=== PATIENT | female | born 1970 | race Caucasian/White ===

== ENCOUNTER → 2016-10-14 | Outpatient (CLI) | payer BC ==
--- NOTE | 2016-10-15 13:59 | MAMMOGRAPHY REPORT ---
BILATERAL DIGITAL SCREENING MAMMOGRAM TOMOSYNTHESIS WITH CAD: 10/14/2016 CLINICAL HISTORY: Routine screening. Patient has no complaints. TECHNIQUE: Breast tomosynthesis in addition to standard 2D mammography was performed. Current study was also evaluated with a Computer Aided Detection (CAD) system. COMPARISON: Comparison is made to exam dated: 10/10/2015 mammogram - [facility]. BREAST COMPOSITION: There are scattered areas of fibroglandular density in both breasts. FINDINGS: No suspicious masses, calcifications, or areas of architectural distortion are noted in ei ther breast. There has been no significant interval change compared to prior exams. Scattered bilater al benign-appearing calcifications are not significantly changed. IMPRESSION: ACR BI-RADS CATEGORY 2: BENIGN There is no mammographic evidence of malignancy. A 1 year screening mammogram is recommended. The pa tient will receive written notification of the results. Approximately 10% of breast cancers are not detected with mammography. A negative mammographic report should not delay biopsy if a clinically suggestive mass is present. Pinky Melchor M.D. ah/:10/14/2016 16:39:14 Acquisition Cost Estimator: Mariposa Shell RT(R)(M)(BD), [facility] letter sent: Normal 1/2 BI-RADS Code: ACR BI-RADS Category 2: Benign
== END | disposition home or self-care (01) ==
LOC: C.MAMM 16:21
PROVIDERS: ATTEND Family Medicine
DX: Z12.31 Encounter for screening mammogram for malignant neoplasm of breast (principal)

== ENCOUNTER 2017-06-17 06:52 | Inpatient (IN) | payer OTHER ==
--- NOTE | 2017-06-14 10:58 | HISTORY & PHYSICAL EXAMINATION ---
DATE OF ADMISSION: 06/17/2017 CHIEF COMPLAINT: Pelvic pain, large ovarian tumor. HISTORY OF PRESENT ILLNESS: The patient is a 47-year-old 2, para 2. She has had 2 previous sections. She has also had a tubal ligation with one of her C-sections for control. Periods are described as 28-30 days. They last for 7+ days. They can be extremely heavy 4-5 days, a cycle soaking over a pad an hour along with a large amount of clotting. She also has severe cramps. She recently had some pelvic discomfort and was seen in the Emergency Room. An ultrasound was performed. She had a large right-sided multicystic ovarian tumor. Some dimensions were over 15 cm. The tumor is palpable abdominally and she is presently being scheduled for a total abdominal hysterectomy, bilateral salpingo-oophorectomy and potential periaortic lymph node sampling. It should also be noted that her sister who is 43 recently had a malignant sarcoma of the pelvis removed just about 3 weeks ago. ALLERGIES: No known drug allergies. PAST SURGICAL HISTORY: She had 2 C-sections and a tubal. PAST MEDICAL HISTORY: No history of rheumatic fever, heart disease, heart murmur, diabetes, tuberculosis. She has 2 children in good health. SOCIAL HISTORY: No smoking. No excessive alcohol intake. Works for [employer]. FAMILY HISTORY: Mom at age 71, complications of an aneurysm. She had also had Legionnaires' disease. Father, 71, has diabetes and COPD. She has 1 sister, age 43, recent removal of a pelvic sarcoma. REVIEW OF SYSTEMS: HEAD: No symptoms of frequent or severe headaches. EYES: No symptoms of blurred vision or double vision. EARS: No symptoms of frequent ear infections, difficulty hearing. PHYSICAL EXAMINATION: GENERAL: Well developed, well-nourished 47-year-old white female, alert, oriented x3 and cooperative in no acute distress, appeared her stated age. EYES: Conjunctivae are pink. Sclerae white, no evidence of jaundice. EARS: Had normal light reflex bilaterally. NOSE: Had normal mucosa. Septum is midline. There were no polyps. THROAT: No erythema or evidence of infection. Teeth are in good state of repair. HEAD: Normocephalic, normal distribution of hair. NECK: Supple. Trachea midline. Thyroid is not enlarged. There is no adenopathy appreciated. Both carotids are of good intensity. CHEST: Clear to auscultation and percussion. No wheezes, rales or rhonchi appreciated. HEART: Regular rhythm. S1, S2 are normal. BREASTS: Normal. ABDOMEN: Revealed a well-healed Pfannenstiel incision. There was a palpable tumor up to the level of the umbilicus. PELVIC: Normal appearing cervix. Uterus was normal size. MUSCULOSKELETAL: Revealed no calf tenderness. IMPRESSIONS OF THIS CASE: Status post 2 C-sections, status post tubal ligation and a large symptomatic ovarian tumor, hypermenorrhea, severe dysmenorrhea.
[2017-06-14 12:20] VITALS: BMI 27.0
--- NOTE | 2017-06-14 12:58 | PAT Medication Instructions ---
Service Date Jun 14, 2017. Current Home Medication List Ibuprofen Tab (Advil), 400 MG PO PRN Medication Instructions For Your Scheduled Surgery - Check with your surgeon for: Ibuprofen Tab (Advil), 400 MG PO PRN If you have any questions please call us at [phone] or [phone] or [phone]
[2017-06-14 13:09] LABS: BASO % 0.2 %; BASO ABS # 0.01 K/uL (0-0.2); EOS % 2.5 %; EOS ABS # 0.13 K/uL (0-0.5); HEMATOCRIT 35.5 % (37-47); HEMOGLOBIN 11.3 g/dL (12.0-16.0); IG# 0.02 K/uL (0.00-0.02); LYMPH % 19.1 %; MEAN CORPUSCULAR HEMOGLOBIN 25.5 pg (25-34); MEAN CORPUSCULAR HGB CONC 31.8 g/dl (32-36); MEAN PLATELET VOLUME 9.1 fL (7.4-10.4); MONO % 8.2 %; MONO ABS # 0.43 K/uL (0.11-0.59); NEUT % 69.6 %; NEUT ABS # 3.65 K/uL (1.4-6.5); PLATELET COUNT 238 K/uL (130-400); RED CELL DISTRIBUTION WIDTH CV 13.8 % (11.5-14.5); RED CELL DISTRIBUTION WIDTH SD 39.8 fL (36.4-46.3); WHITE BLOOD COUNT 5.24 K/uL (4.8-10.8)
[2017-06-14 13:19] LABS: PTT PATIENT 24.1 SECONDS (21.0-31.0)
[2017-06-14 13:34] LABS: CALCIUM 8.7 mg/dl (8.5-10.1); CREATININE 0.96 mg/dl (0.60-1.20); POTASSIUM 3.9 mmol/L (3.5-5.1)
[~2017-06-17] VITALS: Ht 165.1 cm; Wt 75.4 kg
[2017-06-17] VITALS (10 sets, daily range): BP systolic 151–173; BP diastolic 84–112; PULSE 61–97; TEMP 36.4–37.1; O2SAT 94–99; Ht 165.1 cm; Wt 75.4 kg
[~2017-06-17 06:52] MED LIST: CEFOXITIN IV 2,000 MG in DEXTROSE 5% 50ML 50 ML IV SCH; IBUP-103 PO; LACTATED RINGER'S 1000ML 1,000 ML IV SCH
[2017-06-17] MEDS ORDERED: NEOSTIGMINE METHYLSULFATE 5 MG/5 ML SYR ONE (07:39)
[2017-06-17] MEDS ORDERED: ONDANSETRON INJ 2 MG/ML 2 ML VIAL ONE ×2 (07:39→09:20)
[2017-06-17] MEDS ORDERED: GLYCOPYRROLATE INJ 0.2 MG/ML VIAL ONE ×2 (07:39→09:20)
[2017-06-17] MEDS ORDERED: MIDAZOLAM HCL 1 MG/ML 2ML VIAL ONE (07:39)
[2017-06-17] MEDS ORDERED: FENTANYL CITRATE INJ 50 MCG/1 ML 2 ML VIAL ONE ×2 (07:39→10:58)
[2017-06-17] MEDS ORDERED: PROPOFOL IV EMULSION 10 MG/ML 20 ML VIAL IV ONE (07:39)
[2017-06-17] MEDS ORDERED: LIDOCAINE HCL 2% 2 ML VIAL (20MG/ML) ONE (07:39)
[2017-06-17] MEDS ORDERED: DEXAMETHASONE SOD INJ 4 MG/ML VIAL ONE (07:39)
[2017-06-17] MEDS ORDERED: LARYING-O-JET KIT (LTA) ONE (07:40)
[2017-06-17] MEDS ORDERED: SODIUM CHLORIDE 0.9% INJ 10 ML VIAL ONE (07:40)
[2017-06-17] MEDS ORDERED: HYDROmorphone INJ 2 MG/ML SYR/VIAL ONE (07:40)
[2017-06-17] MEDS ORDERED: EpHEDrine SULFATE INJ 50 MG/ML AMP IV PRN (08:00)
[2017-06-17] MEDS ORDERED: ATROPINE SULFATE 0.1 MG/ML 5ML SYR IV PRN (08:00)
[2017-06-17] MEDS ORDERED: PHENYLEPHRINE 100MCG/ML 5ML SYR IV PRN (08:00)
[2017-06-17] MEDS ORDERED: ONDANSETRON INJ 2 MG/ML 2 ML VIAL IV PRN ×2 (08:00→11:15)
--- NOTE | 2017-06-17 08:08 | History & Physical Bridge Note ---
H&P Re-Evaluation Bridge Note: I have examined the patient, reviewed the History & Physical and in the interval since the performance of the History & Physical by Dr Sim I have noted the following changes of clinical significance: No changes noted explained to pt that I will be helping dr Sim and if node dissection needed( hopefully not) i will perform it ( a seperate consent signed at request of OR charge nurse)
--- NOTE | 2017-06-17 08:37 | History & Physical Bridge Note ---
H&P Re-Evaluation Bridge Note: I have examined the patient, reviewed the History & Physical and in the interval since the performance of the History & Physical I have noted the following changes of clinical significance: No changes noted
[2017-06-17] MEDS ORDERED: HEPARIN SOD (PORCINE) 1000 UNIT/ML 10 ML VIAL ONE (08:39)
[2017-06-17] MEDS ORDERED: ESMOLOL HCL 10 MG/ML 10 ML VIAL ONE (09:12)
[2017-06-17] MEDS ORDERED: PHENYLEPHRINE 100MCG/ML 5ML SYR ONE (09:20)
[2017-06-17] MEDS ORDERED: ROCURONIUM BROMIDE 10 MG/ML 5 ML VIAL IV ONE (10:43)
[2017-06-17] MEDS ORDERED: KETOROLAC TROMETHAMINE 30 MG/ML VIAL ONE (10:46)
--- NOTE | 2017-06-17 10:48 | [facility] Post Operative Brief Note ---
Immediate Operative Summary Operative Date Jun 17, 2017. Pre-Operative Diagnosis Pelvic Pain, Pelvic Mass Post-Operative Diagnosis Pelvic Pain, Left Ovarian Tumor Procedure(s) Performed Total Abdominal Hysterectomy, Bilateral Salping-Oophrectomy Surgeon Dr. Sim, Dr. Cabrera Cabin Equipment Supervisor Surgeon(s) Dilcia Milligan PA-C Estimated Blood Loss 160 cc Findings Consistent with Post-Op Diagnosis Fluids (cc crystalloids) 1200 ml Specimens Frozen: #1 Left Ovarian Tumor Cytology #1 Peritoneal Fluid Drains doe drain with safety pin Anesthesia Type General Complication(s) none Disposition Accompanied Pt To Recover: no Disposition: Recovery Room / PACU
[2017-06-17] MEDS ORDERED: MAGNESIUM HYDROXIDE SUSP 30 ML UDC PO PRN (11:15)
[2017-06-17] MEDS ORDERED: BISACODYL 10 MG SUPP PR PRN (11:15)
[2017-06-17] MEDS ORDERED: SENNA 8.6 MG TAB PO PRN (11:15)
[2017-06-17] MEDS ORDERED: MEPERIDINE HCL 50 MG/ML CARP IV PRN (11:15)
[2017-06-17] MEDS: HYDROmorphone INJ 2 MG/ML SYR/VIAL IV PRN ×2 (11:18→11:24)
--- NOTE | 2017-06-17 12:32 | OPERATIVE REPORT ---
DATE OF OPERATION: 06/17/2017 PROCEDURE: This is an operative notation of a total abdominal hysterectomy, bilateral salpingo-oophorectomy. INDICATIONS FOR SURGERY: Large left-sided ovarian tumor. PREOPERATIVE DIAGNOSIS: Left-sided ovarian tumor. POSTOPERATIVE DIAGNOSIS: Large benign serous adenoma. SURGEON: Shana Sim MD SIGN BUILDER SUPERVISOR: Dr. Goetz Estimated Blood Loss: 160 mL ANESTHESIA: General. OPERATIVE FINDINGS AND PROCEDURE: The patient was brought to the OR table, correctly identified by armband and conversation. General anesthesia was administered. The perineum and vagina were painted with Betadine paint, draped in usual sterile fashion. A Burton catheter was inserted into the bladder connected to gravity drainage. Compression stockings were applied. The lower abdomen and umbilical area were painted with an alcohol-based sterilizing solution, draped in usual sterile fashion. The pelvic tumor was palpable abdominally and came to the level of the umbilicus. A midline incision was made and carried down to the anterior fascia by sharp dissection. Hemostasis was secured by electrocauterization. The fascia was incised vertically. Recti muscles were . The peritoneum was carefully raised and entered. A large ovarian tumor was noted at this time and we had to extend the incision partly around the umbilicus on the right side in order to get it through the abdominal incision without rupture. After extending the incision, we were able to deliver it through the incision intact, doubly clamped the base, cut it, and then immediately put it in a basin. We then ligated the base of the tumor, packed the bowels out, using an O'Scar-O'Sykes self-retraining retractor grasped the uterus with a double tooth tenaculum. The uterus at this time was enlarged to about an 8-week size. The right ovary appeared normal. We proceeded to remove the right ovary by going retroperitoneally, then isolating the infundibulopelvic ligament that supplied the blood from the lateral pelvic wall, doubly ligated it distally, singly ligated it proximally, cut it free. We then re-ligated the infundibulopelvic ligament on the left side by going retroperitoneally, then ligated the round ligaments on either side proximally and distally, cut the round ligaments, made an incision above the vesicouterine fold, then advanced the bladder out of the operative field, skeletonized the uterine vessels, clamped it with a curved Cesar, then doubly ligated it with a chromic gut suture. We then continued to dissect the bladder off the cervix to make sure it was well-advanced and then clamped the cardinal ligaments serially by sliding off the cervix with a curved Cesar, cutting with a stump and then ligating with a chromic gut suture. This was done in 2 steps because of the length of the ligament. Then the specimen was removed by using an electrocautery knife and shelling out the cervix by starting up high from the cuff and shelling out the cervix, entering the vagina, and carrying the incision around the cervix, thus excising the remaining surgical specimen, which were uterus, cervix, right tube, and ovary. The angles of the vaginal cuff were suture ligated to the stumps of the cardinal ligaments on either side, then the vaginal mucosa was approximated [id number] with interrupted [id number] sutures of chromic catgut. An additional suture was placed on the left side and then a small portion of the vaginal cuff was whipstitched open with a continuous chromic gut suture. The cardinal ligaments were then approximated by going from the patient's left side up by the cardinal ligaments getting the distal uterosacral ligament on the right side, then going to the left distal uterosacral ligament and coming back to the right cardinal ligament and then tying a [id number] suture of Vicryl. This gave additional support to the posterior cuff. We then took the round ligaments, brought them down into the vaginal cuff, sutured them into the vaginal cuff, then reperitonealized everything with a continuous chromic gut suture, placed a Rhys drain with a safety pin into the vaginal cuff to the distal end into the cul-de-sac. We washed everything clean and then reapproximated the abdominal wall. I did a running chromic gut suture to approximate the peritoneal edges, did a running heavy PDS to approximate the fascia from the top of the defect to the middle and then from the bottom of the defect to the middle. Then I did a running subcuticular suture and approximated the skin edges with staple clips. The patient tolerated the procedure well and left the OR in good condition. I attest to the content of the Intraoperative Record and any orders documented therein. Any exception s are noted below.
--- NOTE | 2017-06-17 14:04 | Anesthesiology Progress Note ---
Anesthesia Post Op Note Date & Time Jun 17, 2017 at 14:04 Vital Signs Pain Intensity: 6.0 Vital Signs Past 12 Hours Date Time Temp Pulse Resp B/P (MAP) Pulse Ox O2 Delivery O2 Flow Rate FiO2 06/17/17 13:15 36.9 72 18 153/98 (116) 99 Nasal Cannula 2.0 06/17/17 12:45 36.6 74 20 154/90 (111) 98 Nasal Cannula 2.0 06/17/17 12:15 99 Nasal Cannula 2.0 06/17/17 12:15 36.9 61 20 155/88 (110) 99 Nasal Cannula 2.0 06/17/17 12:15 99 Nasal Cannula 2.0 06/17/17 11:50 16 141/88 99 Nasal Cannula 2 06/17/17 11:40 37.0 69 16 122/82 99 Nasal Cannula 2 06/17/17 11:30 70 12 135/81 99 Nasal Cannula 2 06/17/17 11:20 69 15 133/68 100 Oxymask 10 06/17/17 11:10 66 11 141/88 99 Oxymask 10 06/17/17 11:00 37.1 66 20 148/102 96 Oxymask 10 06/17/17 07:48 37.1 73 20 151/92 97 Room Air Notes Mental Status: alert / awake / arousable, participated in evaluation Pt Amnestic to Procedure: Yes Nausea / Vomiting: adequately controlled Pain: adequately controlled Airway Patency, RR, SpO2: stable & adequate BP & HR: stable & adequate Hydration State: stable & adequate Anesthetic Complications: no major complications apparent
[2017-06-17] MEDS ORDERED: NURSING VERBAL MED ORDER ONE (14:30)
[2017-06-17] MEDS ORDERED: MEPERIDINE HCL 50 MG/ML CARP IV ONE (14:45)
[2017-06-17] MEDS: D5W AND LACTATED RINGERS 1,000 ML IV SCH ×2 (16:10→23:57)
[2017-06-17] MEDS: KETOROLAC TROMETHAMINE 30 MG/ML VIAL IV. PRN ×2 (16:10→21:46)
[2017-06-17] MEDS: MEPERIDINE HCL 50 MG/ML CARP IV PRN ×2 (18:15→22:40)
[2017-06-18] VITALS: BP 142/83; PULSE 69; TEMP 36.4; O2SAT 97
[2017-06-18 03:00] VITALS: BP 153/79; PULSE 73; TEMP 36.8; O2SAT 96
[2017-06-18] MEDS: KETOROLAC TROMETHAMINE 30 MG/ML VIAL IV. PRN ×2 (03:22→08:55)
[2017-06-18 06:31] LABS: EOS % 0.2 %; EOS ABS # 0.02 K/uL (0-0.5); HEMATOCRIT 33.5 % (37-47); HEMOGLOBIN 10.9 g/dL (12.0-16.0); IG# 0.02 K/uL (0.00-0.02); LYMPH % 11.1 %; LYMPH ABS # 0.98 K/uL (1.2-3.4); MEAN CELL VOLUME 79.6 fL (80-100); MEAN CORPUSCULAR HEMOGLOBIN 25.9 pg (25-34); MEAN CORPUSCULAR HGB CONC 32.5 g/dl (32-36); MEAN PLATELET VOLUME 8.8 fL (7.4-10.4); MONO % 5.4 %; MONO ABS # 0.48 K/uL (0.11-0.59); NEUT % 83.1 %; NEUT ABS # 7.36 K/uL (1.4-6.5); PLATELET COUNT 236 K/uL (130-400); RED CELL DISTRIBUTION WIDTH SD 39.2 fL (36.4-46.3); WHITE BLOOD COUNT 8.86 K/uL (4.8-10.8)
[2017-06-18] MEDS: MEPERIDINE HCL 50 MG/ML CARP IV PRN (06:31)
[2017-06-18 07:34] VITALS: BP 131/81; PULSE 80; TEMP 37; O2SAT 95
--- NOTE | 2017-06-18 11:17 | Progress Note ---
Subjective Jun 18, 2017. Subjective conversation w/ patient Ambulation: ambulating normally, limited ambulation Voiding: no voiding problems Passing Gas: No Diet Tolerance: Clear Liquids Review of Systems Constitutional: + fever Objective Vital Signs Date Time Temp Pulse Resp B/P (MAP) Pulse Ox O2 Delivery O2 Flow Rate FiO2 06/18/17 07:50 Room Air 06/18/17 07:34 37.0 80 16 131/81 (98) 95 Room Air 06/18/17 03:00 36.8 73 18 153/79 (103) 96 Room Air 06/18/17 00:00 36.4 69 18 142/83 (102) 97 Room Air 06/18/17 00:00 97 Room Air 06/17/17 22:00 94 Room Air 06/17/17 20:00 36.7 76 18 157/84 (108) 99 Nasal Cannula 2.0 76 06/17/17 16:10 173/91 (118) 06/17/17 15:30 36.9 97 16 171/92 (118) Nasal Cannula 2.0 81 167/112 (130) 06/17/17 15:30 98 Nasal Cannula 2.0 06/17/17 15:05 36.4 90 20 166/99 (121) 96 Nasal Cannula 2.0 06/17/17 14:15 36.7 82 18 160/90 (113) 98 Nasal Cannula 2.0 06/17/17 13:15 36.9 72 18 153/98 (116) 99 Nasal Cannula 2.0 06/17/17 12:45 36.6 74 20 154/90 (111) 98 Nasal Cannula 2.0 06/17/17 12:15 99 Nasal Cannula 2.0 06/17/17 12:15 36.9 61 20 155/88 (110) 99 Nasal Cannula 2.0 06/17/17 12:15 99 Nasal Cannula 2.0 06/17/17 11:50 16 141/88 99 Nasal Cannula 2 06/17/17 11:40 37.0 69 16 122/82 99 Nasal Cannula 2 06/17/17 11:30 70 12 135/81 99 Nasal Cannula 2 06/17/17 11:20 69 15 133/68 100 Oxymask 10 Physical Exam General Appearance: WELL-APPEARING Respiratory/Chest: lungs clear Abdomen: + abnormal bowel sounds Incision Description: Clean, Dry & Intact Extremities: no pedal edema, no calf tenderness Laboratory Results Last 24 Hours Test 06/18/17 06:20 White Blood Count 8.86 K/uL Red Blood Count 4.21 M/uL Hemoglobin 10.9 g/dL Hematocrit 33.5 % Mean Corpuscular Volume 79.6 fL Mean Corpuscular Hemoglobin 25.9 pg Mean Corpuscular Hemoglobin Concent 32.5 g/dl Platelet Count 236 K/uL Mean Platelet Volume 8.8 fL Neutrophils (%) (Auto) 83.1 % Lymphocytes (%) (Auto) 11.1 % Monocytes (%) (Auto) 5.4 % Eosinophils (%) (Auto) 0.2 % Basophils (%) (Auto) 0.0 % Neutrophils # (Auto) 7.36 K/uL Lymphocytes # (Auto) 0.98 K/uL Monocytes # (Auto) 0.48 K/uL Eosinophils # (Auto) 0.02 K/uL Basophils # (Auto) 0.00 K/uL RDW Standard Deviation 39.2 fL RDW Coefficient of Variation 14.0 % Immature Granulocyte % (Auto) 0.2 % Immature Granulocyte # (Auto) 0.02 K/uL Assessment and Plan Continue Routine Care: hypoactive bowel sounds
[2017-06-18] MEDS ORDERED: NURSING VERBAL MED ORDER ONE (11:30)
[2017-06-18 11:59] VITALS: BP 149/89; PULSE 84; TEMP 36.9; O2SAT 97
[2017-06-18] MEDS: SIMETHICONE 80 MG CHEW PO SCH ×3 (12:06→20:41)
[2017-06-18] MEDS: OXYCODONE/ACETAMINOPHEN 5-325 TAB PO PRN ×4 (12:07→20:45)
[2017-06-18 15:45] VITALS: BP 123/84; PULSE 83; TEMP 37.2; O2SAT 96
[2017-06-18] MEDS: IBUPROFEN 600 MG TAB PO PRN ×2 (15:54→20:12)
[2017-06-19 00:01] VITALS: BP 117/75; PULSE 76; TEMP 36.6; O2SAT 96
[2017-06-19] MEDS: OXYCODONE/ACETAMINOPHEN 5-325 TAB PO PRN ×5 (03:46→21:04)
[2017-06-19] MEDS: IBUPROFEN 600 MG TAB PO PRN ×4 (03:47→21:04)
[2017-06-19 07:07] LABS: BASO % 0.2 %; BASO ABS # 0.01 K/uL (0-0.2); EOS ABS # 0.11 K/uL (0-0.5); HEMATOCRIT 30.5 % (37-47); HEMOGLOBIN 9.5 g/dL (12.0-16.0); IG# 0.02 K/uL (0.00-0.02); LYMPH % 10.9 %; LYMPH ABS # 0.61 K/uL (1.2-3.4); MEAN CELL VOLUME 81.6 fL (80-100); MEAN CORPUSCULAR HEMOGLOBIN 25.4 pg (25-34); MEAN CORPUSCULAR HGB CONC 31.1 g/dl (32-36); MEAN PLATELET VOLUME 9.1 fL (7.4-10.4); MONO % 7.7 %; MONO ABS # 0.43 K/uL (0.11-0.59); NEUT % 78.8 %; PLATELET COUNT 221 K/uL (130-400); RED CELL DISTRIBUTION WIDTH CV 14.3 % (11.5-14.5); RED CELL DISTRIBUTION WIDTH SD 42.8 fL (36.4-46.3); WHITE BLOOD COUNT 5.58 K/uL (4.8-10.8)
[2017-06-19 07:45] VITALS: BP 133/87; PULSE 78; TEMP 36.5; O2SAT 96
[2017-06-19] MEDS: SIMETHICONE 80 MG CHEW PO SCH ×4 (08:54→21:04)
--- NOTE | 2017-06-19 09:57 | Progress Note ---
Subjective Jun 19, 2017. Subjective conversation w/ patient Ambulation: ambulating normally Voiding: no voiding problems Passing Gas: Yes Diet Tolerance: Regular Diet Lochia: Small Review of Systems Constitutional: + fever Objective Vital Signs Date Time Temp Pulse Resp B/P (MAP) Pulse Ox O2 Delivery O2 Flow Rate FiO2 06/19/17 07:45 Room Air 06/19/17 07:45 36.5 78 16 133/87 (102) 96 Room Air 06/19/17 00:01 36.6 76 16 117/75 (89) 96 Room Air 06/19/17 00:01 96 Room Air 06/18/17 15:45 96 Room Air 06/18/17 15:45 37.2 83 16 123/84 (97) 96 Room Air 06/18/17 11:59 36.9 84 18 149/89 (109) 97 Room Air Physical Exam General Appearance: WELL-APPEARING Respiratory/Chest: lungs clear Abdomen: normal bowel sounds, non tender Extremities: no pedal edema, no calf tenderness Laboratory Results Last 24 Hours Test 06/19/17 06:27 White Blood Count 5.58 K/uL Red Blood Count 3.74 M/uL Hemoglobin 9.5 g/dL Hematocrit 30.5 % Mean Corpuscular Volume 81.6 fL Mean Corpuscular Hemoglobin 25.4 pg Mean Corpuscular Hemoglobin Concent 31.1 g/dl Platelet Count 221 K/uL Mean Platelet Volume 9.1 fL Neutrophils (%) (Auto) 78.8 % Lymphocytes (%) (Auto) 10.9 % Monocytes (%) (Auto) 7.7 % Eosinophils (%) (Auto) 2.0 % Basophils (%) (Auto) 0.2 % Neutrophils # (Auto) 4.40 K/uL Lymphocytes # (Auto) 0.61 K/uL Monocytes # (Auto) 0.43 K/uL Eosinophils # (Auto) 0.11 K/uL Basophils # (Auto) 0.01 K/uL RDW Standard Deviation 42.8 fL RDW Coefficient of Variation 14.3 % Immature Granulocyte % (Auto) 0.4 % Immature Granulocyte # (Auto) 0.02 K/uL Assessment and Plan Post-Op Day#: 2 Continue Routine Care: doe drain removed from vaginal cuff with safety pin
[2017-06-19] MEDS: ESTRADIOL 1 MG TAB PO SCH (11:37)
[2017-06-19 16:20] VITALS: BP 132/77; PULSE 90; TEMP 36.8; O2SAT 98
[2017-06-19 23:32] VITALS: BP 111/75; PULSE 68; TEMP 37.2; O2SAT 97
[2017-06-20] MEDS: IBUPROFEN 600 MG TAB PO PRN ×3 (00:57→11:20)
[2017-06-20] MEDS: OXYCODONE/ACETAMINOPHEN 5-325 TAB PO PRN ×3 (00:59→11:21)
[2017-06-20 07:40] VITALS: BP 13/84; PULSE 74; TEMP 36.5; O2SAT 97
[2017-06-20] MEDS: SIMETHICONE 80 MG CHEW PO SCH (08:41)
[2017-06-20] MEDS: ESTRADIOL 1 MG TAB PO SCH (08:41)
--- NOTE | 2017-06-20 10:24 | Progress Note ---
Subjective Jun 20, 2017. Subjective conversation w/ patient Ambulation: ambulating normally Voiding: no voiding problems Passing Gas: Yes Diet Tolerance: Regular Diet Lochia: Small Review of Systems Constitutional: + fever Objective Vital Signs Date Time Temp Pulse Resp B/P (MAP) Pulse Ox O2 Delivery O2 Flow Rate FiO2 06/20/17 07:40 97 Room Air 06/20/17 07:40 36.5 74 16 13/84 (61) 97 Room Air 06/19/17 23:32 37.2 68 16 111/75 (87) 97 Room Air 06/19/17 23:32 97 Room Air 06/19/17 16:20 36.8 90 18 132/77 (95) 98 Room Air 06/19/17 16:20 98 Room Air Physical Exam General Appearance: WELL-APPEARING Respiratory/Chest: lungs clear Abdomen: normal bowel sounds, non tender Incision Description: Clean, Dry & Intact Extremities: no pedal edema, no calf tenderness Assessment and Plan Post-Op Day#: 3
--- NOTE | 2017-06-20 10:26 | Discharge Instructions ---
Discharge Instructions Date of Service Jun 20, 2017. Admission Reason for Admission: Large Pelvic Mass, Pelvic Pain Discharge Discharge Diagnosis / Problem: large ovarian tumor Discharge Goals Goal(s): Routine recovery after surgery Activity Recommendations Activity Limitations: as noted below . ACTIVITY RECOMMENDATIONS: * Gradual return to full activity over next 2-3 weeks. * No heavy lifting over next 2-3 weeks. * Nothing in the vagina (no intercourse, tampons, or douching) for 4 weeks * You may walk up and down steps as necessary. * You may drive a car in 2 weeks. * Hot shower or tub bath daily. SPECIAL CARE INSTRUCTIONS: * Check temperature twice daily for one week. Report any elevation over 100.4 degrees Fahrenheit (38.0 degrees Celsius). * Call your doctor if bleeding becomes heavier than the heaviest part of your period - saturating a sanitary pad within an hour. * If you develop a red, hard, warm swollen lump on your incision or if you develop any separation of or drainage from your incision, notify your doctor. Instructions / Follow-Up Instructions / Follow-Up ACTIVITY RECOMMENDATIONS: * Gradual return to full activity over next 2-3 weeks. * No heavy lifting over next 2-3 weeks. * Nothing in the vagina (no intercourse, tampons, or douching) for 4 weeks * You may walk up and down steps as necessary. * You may drive a car in 2 weeks. * Hot shower or tub bath daily. SPECIAL CARE INSTRUCTIONS: * Check temperature twice daily for one week. Report any elevation over 100.4 degrees Fahrenheit (38.0 degrees Celsius). * Call your doctor if bleeding becomes heavier than the heaviest part of your period - saturating a sanitary pad within an hour. * If you develop a red, hard, warm swollen lump on your incision or if you develop any separation of or drainage from your incision, notify your doctor. Current Hospital Diet Patient's current hospital diet: Regular Diet Discharge Diet Recommended Diet: Regular Diet Procedures Procedures Performed: Total Abdominal Hysterectomy, Bilateral Salping-Oophrectomy Pending Studies Studies pending at discharge: no Medical Emergencies . Who to Call and When: Medical Emergencies: If at any time you feel your situation is an emergency, please call 911 immediately. . Non-Emergent Contact Non-Emergency issues call your: Silver Solderer Call Non-Emergent contact if: temperature is above 100.5 . . "Provider Documentation" section prepared by Andrew Sim. .
[2017-06-20 10:51] VITALS: BP 13/84; PULSE 74; TEMP 36.5; O2SAT 97
--- NOTE | 2017-06-20 10:58 | DISCHARGE SUMMARY ---
Mrs. Dean is a 47-year-old 2, para 2, has had 2 previous sections, also had tubal ligation with one of the C-sections. Periods are 28-30 days, last for over 7 days, extremely heavy for 4-5 days a cycle, soaking over a pad and a tampon in under an hour, making it difficult for her to function or go to work. She is bleeding through. Also had severe cramps. Recently had some pelvic discomfort, was seen in the Emergency Room. An ultrasound was performed. A large right-sided multicystic ovarian tumor was noted; some of the dimensions were over 15 cm. The patient was taken to the OR to undergo a total abdominal hysterectomy, bilateral oophorectomy and possible pelvic aortic nodes if the tumor was malignant. On the day of admission, she was taken to the OR where through a midline incision, we did a total abdominal hysterectomy, bilateral salpingo-oophorectomy, removed the tumor intact without rupture did peritoneal fluid sampling at the time of the surgery and got a report from the pathologist; he said it was a benign serous cystadenoma. We then aborted doing any periaortic nodes and closed the patient. Patient had an ileus for about a day and a half and remained afebrile. Her preoperative hemoglobin was 11.3, hematocrit 35.5. Postoperatively, hemoglobin dropped to 9.5, hematocrit 30.5. On second postoperative day, bowel sounds started to return. A [place] drain and safety pin was removed from the vagina. We were then able to ambulate the patient and control her pain with a combination of Percocet and Motrin and the patient was discharged to be followed in home and office with the usual instructions to call if she had a temperature over 100 or any heavy bleeding and she had her usual medications of Percocet and Motrin and she was also given estradiol 2 mg which she was to take daily. She will call the office for removal of michael.
--- NOTE | 2017-06-22 08:22 | EDITING REQUIRED CODING QUERY ---
CODING QUERY To promote full compliance with coding requirements relating to patient care, provider participation is requested in all cases of classified ad taker uncertainty. Please assist us with the question(s) below: Coding Question(s): Due to conflicting documentation between the H&P, Discharge Summary and Operative Report, please specify the site of the ovarian tumor. ( ) Left-Sided Ovarian Tumor ( ) Right-Sided Ovarian Tumor ( ) Bilateral Ovarian Tumors Physician's Response(s): left sided ovarian tumor Thank you Yolande Choudhury Principal Diagnosis: "_that condition established after study, to be chiefly responsible for occasioning the admission of the patient to the hospital for care." Co-Existing Principal Diagnosis: "_when two or more diagnoses equally meet the criteria for principal diagnosis as determined by the circumstances of admission, diagnostic work up, and/or therapy provided, and the Alphabetic Index, Tabular List, or another coding guideline does not provide sequencing direction, any one of the diagnoses may be sequenced first." "When the physician has documented what appears to be a current diagnosis in the body of the record, but has not included the diagnosis in the final diagnostic statement, the physician should be asked whether the diagnosis should be added." ([facility] 2 QTR90. p3-4)
== END 2017-06-20 12:04 | disposition home or self-care (01) | DRG 743 ==
LOC: C.ACU 06:52 → C.MS4N 11:11
PROVIDERS: ADMIT Obstetrics & Gynecology; ATTEND Obstetrics & Gynecology
PROC: 0UTC0ZZ Resection of Cervix, Open Approach (ICD-10-PCS; principal; 2017-06-17 08:30)
PROC: 0UT90ZZ Resection of Uterus, Open Approach (ICD-10-PCS; principal; 2017-06-17 08:30)
PROC: 0UT20ZZ Resection of Bilateral Ovaries, Open Approach (ICD-10-PCS; principal; 2017-06-17 08:30)
PROC: 0UT70ZZ Resection of Bilateral Fallopian Tubes, Open Approach (ICD-10-PCS; principal; 2017-06-17 08:30)
DX: D27.1 Benign neoplasm of left ovary (principal); N92.0 Excessive and frequent menstruation with regular cycle; N94.6 Dysmenorrhea, unspecified; Z98.891 History of uterine scar from previous surgery; Z98.51 Tubal ligation status; Z80.8 Family history of malignant neoplasm of other organs or systems; Z82.49 Family history of ischemic heart disease and other diseases of the circulatory system; Z83.3 Family history of diabetes mellitus; Z82.5 Family history of asthma and other chronic lower respiratory diseases; Z83.1 Family history of other infectious and parasitic diseases